=== PATIENT | female | born 1965 ===

== ENCOUNTER 2017-06-28 06:23 | Emergency (ER) | payer MEDICAID ==
[2017-06-28 06:38] VITALS: TEMP 97.8; O2SAT 100
[2017-06-28 06:59] LABS: RBC URINE 2 /hpf (0-3); URINE BILIRUBIN NEGATIVE (NEGATIVE); URINE BLOOD NEGATIVE (NEGATIVE); URINE COLOR Yellow (YELLOW); URINE GLUCOSE (UA) 1+ mg/dL (Normal); URINE KETONE NEGATIVE (NEGATIVE); URINE LEUKOCYTE ESTERASE 1+ Leu/uL (Negative); URINE PROTEIN NEGATIVE (NEGATIVE); URINE UROBILINOGEN NORMAL mg/dL (0.2-1.0); WBC CLUMPS MANY /hpf; WBC URINE 31 /hpf (0-5)
--- NOTE | 2017-06-28 07:24 | C.PDOC ---
History Of Present Illness Patient is a 52 yo female who presents to the ED with complaints of abdominal pain since 5am this morning. Patient reports to have vomited once, and describes the pain as constant, non-radiating, and burning with worsened symptoms in the upper abdomen. Patient has a history of diabetes and gastritis; takes omeprazole as needed for gastritis. Patient reports to have taken Tylenol this morning with no relief. Denies fever, diarrhea, and constipation. Time Seen by Provider: 06/28/17 07:12 Chief Complaint (Nursing): Abdominal Pain History Per: Patient History/Exam Limitations: no limitations Onset/Duration Of Symptoms: Hrs (symptoms began at 5am. ) Current Symptoms Are (Timing): Still Present Severity: Moderate Pain Scale Rating Of: 8 Location Of Pain/Discomfort: Epigastric Radiation Of Pain To:: None Quality Of Discomfort: Burning, "Pain" Associated Symptoms: denies: Fever, Diarrhea, Constipation Alleviating Factors: None Recent travel outside of the [place]: No Abnormal Vaginal Bleeding: No Past Medical History Reviewed: Historical Data, Nursing Documentation, Vital Signs Vital Signs: Last Vital Signs Temp 97.8 F 06/28/17 06:31 Pulse 70 06/28/17 06:31 Resp 16 06/28/17 06:31 BP 158/92 H 06/28/17 06:31 Pulse Ox 100 06/28/17 08:31 - Medical History PMH: Diabetes, Gastritis Other Surgeries: Rt foot surgery s.p fx Family History: States: Unknown Family Hx - Social History Hx Alcohol Use: No Hx Substance Use: No - Immunization History Hx Tetanus Toxoid Vaccination: No Hx Influenza Vaccination: No Hx Pneumococcal Vaccination: No Review Of Systems Constitutional: Negative for: Fever Cardiovascular: Negative for: Chest Pain Respiratory: Negative for: Shortness of Breath Gastrointestinal: Positive for: Vomiting (vomited x1 ), Abdominal Pain. Negative for: Diarrhea, Constipation Genitourinary: Negative for: Dysuria Skin: Negative for: Rash Neurological: Negative for: Headache Physical Exam - Physical Exam Appears: Non-toxic, Other (uncomfortable.) Skin: Normal Color, Warm, Dry Head: Atraumatic, Normacephalic Eye(s): bilateral: Normal Inspection, EOMI Nose: Normal Oral Mucosa: Moist Neck: Normal ROM Chest: Symmetrical Cardiovascular: Rhythm Regular Respiratory: Normal Breath Sounds, No Rales, No Rhonchi, No Wheezing Gastrointestinal/Abdominal: Bowel Sounds (active and normal. ), Soft, Tenderness (generalized tenderness. ), No Guarding, No Rebound Extremity: Bilateral: Normal Color And Temperature, Normal ROM Neurological/Psych: Oriented x3, Normal Speech, Other (no focal defecits. ) ED Course And Treatment - Laboratory Results Result Diagrams: 06/28/17 07:48 06/28/17 07:48 O2 Sat by Pulse Oximetry: 100 (Room Air) Pulse Ox Interpretation: Normal Medical Decision Making Medical Decision Making: Impression: Abdominal pain and vomiting Prior records reviewed: None available for review Plan: * Labs * UA * IV NS, Pepcid, Zofran Progress: Labs reviewed and unremarkable; no leukocytosis or elevated lipase or electrolyte abnormality. Patient remained afebrile alert and oriented with stable vital signs during ER evaluation. Discussed results with patient, and copy of report was provided. 08:29 On re-examination, patient is resting comfortably in no acute distress. Patient reports improvement of symptoms. Patient feels comfortable going home and will be discharged. Patient given follow up instructions. Instructed to return to ER if symptoms worsen or new symptoms arise. Disposition Counseled Patient/Family Regarding: Diagnosis, Need For Followup - Disposition Referrals: [facility] [Outside] Disposition: HOME/ ROUTINE Disposition Time: 08:34 Condition: STABLE Additional Instructions: Tus laboratorios tea normales. Contine tomando metcalf medicacin diabtica y omeprazol para la gastritis. Descanse y shantell muchos lquidos para prevenir la deshidratacin. Seguimiento con metcalf mdico para ms evaluacin Prescriptions: Dicyclomine [Bentyl] 20 mg PO Q8 #20 tab Instructions: Acute Abdominal Pain (DC) Forms: Buz (Gambian) Print Language: JAPANESE - POA Present On Arrival: None - Clinical Impression Clinical Impression: Upper abdominal pain - Scribe Statement The provider has reviewed the documentation as recorded by the Scribe Cristal Omer All medical record entries made by the Scribe were at my direction and personally dictated by me. I have reviewed the chart and agree that the record accurately reflects my personal performance of the history, physical exam, medical decision making, and the department course for this patient. I have also personally directed, reviewed, and agree with the discharge instructions and disposition.
[2017-06-28] MEDS ORDERED: Sodium Chloride 0.9% 1,000 ML IV ONE (07:31)
[2017-06-28] MEDS ORDERED: Sodium Chloride 0.9% 1,000 ML ONE (07:37)
[2017-06-28 07:58] LABS: BASO % 0.3 % (0.0-2.0); EOS % 0.2 % (0.0-4.0); LYMPH # 0.8 K/uL (1.0-4.3); LYMPH % 8.5 % (20.0-40.0); MEAN CELL VOLUME 93.2 fL (81.0-99.0); MEAN CORPUSCULAR HEMOGLOBIN 33.2 pg (27.0-31.0); MEAN CORPUSCULAR HGB CONC 35.6 g/dL (33.0-37.0); MEAN PLATELET VOLUME 8.6 fL (7.2-11.7); MONO # 0.4 K/uL (0.0-0.8); PLATELET COUNT 186 K/uL (130-400); RED CELL DISTRIBUTION WIDTH 14.4 % (11.5-14.5); WHITE BLOOD COUNT 9.3 K/uL (4.8-10.8)
[2017-06-28 08:12] LABS: CHLORIDE 103 mmol/L (98-107); SODIUM 141 mmol/L (132-148)
[2017-06-28 08:14] LABS: AST/SGOT 25 U/L (14-36); BILIRUBIN,TOTAL 0.8 mg/dL (0.2-1.3); CARBON DIOXIDE 22 mmol/L (22-30)
[2017-06-28 08:15] LABS: ALB/GLOB RATIO 1.6 (1.0-2.1); ALKALINE PHOSPHATASE 108 U/L (38-126); ALT/SGPT 38 U/L (9-52); BLOOD UREA NITROGEN 16 mg/dL (7-17); CALCIUM 8.6 mg/dl (8.6-10.4); GLUCOSE,RANDOM 147 mg/dL (65-105); TOTAL PROTEIN 7.2 g/dL (6.3-8.3)
[2017-06-28 08:34] LABS: GFR AFRICAN-AMERICAN > 60
[2017-06-28 08:41] VITALS: BP 149/86; PULSE 67; RESP 20
[2017-06-28 08:59] LABS: BASOPHIL 1 % (0-2); NEUTROPHIL 84 % (50-75); TOTAL CELLS COUNTED 100
== END 2017-06-28 08:44 | disposition home or self-care (01) ==
LOC: C.ER 06:23
DX: R10.10 Upper abdominal pain, unspecified (principal)
CPT/HCPCS: 80053; 81001; 83690; 84703; 85025; 96361; 96374; 96375; 99283; J2405; J7040